=== PATIENT | male | born 1930 | race Caucasian/White ===

== ENCOUNTER 2016-10-24 16:28 | Emergency (ER) | payer MEDICARE, OTHER ==
[2016-10-24 13:13] LABS: BASOPHILS 0.4 %; BASOPHILS ABSOLUTE 0.02 10/3/uL (0.0-0.16); EOSINOPHILS 0.6 %; EOSINOPHILS ABSOLUTE 0.03 10/3/uL (0.0-0.53); ER CBC TAT 0 Hrs 07 Mins; HEMATOCRIT 29.5 % (40.0-51.0); HEMOGLOBIN 9.5 g/dL (13.6-17.8); IMMATURE GRANULOCYTES 0.6 %; IMMATURE GRANULOCYTES ABSOLUTE 0.03 10/3/uL (0.0-0.11); LYMPHOCYTES 11.9 %; LYMPHOCYTES ABSOLUTE 0.56 10/3/uL (0.67-4.30); MEAN CORPUSCULAR HEMOGLOB 30.7 pg (26.0-34.0); MEAN PLATELET VOLUME 8.8 fL (9.2-13.0); MONOCYTES 12.3 %; MONOCYTES ABSOLUTE 0.58 10/3/uL (0.21-1.20); NEUTROPHILS 74.2 %; NEUTROPHILS ABSOLUTE 3.49 10/3/uL (2.02-8.40); PLATELET COUNT 252 10/3/uL (150-400); RBC DISTRIBUTION WIDTH 13.8 % (12.0-16.0); RED CELL COUNT 3.09 10/6/uL (4.7-6.1); WHITE BLOOD CELLS 4.7 10/3/uL (4.5-10.5)
[2016-10-24 13:14] LABS: MANUAL DIFF NO %; MEAN CORPUS HGB CONC 32.2 g/dL (32.0-36.0); MEAN CORPUSCULAR VOLUME 95.5 fL (80-100)
[2016-10-24 13:23] LABS: INTERNATIONAL NORMAL RATI 2.5 UNITS (-); PARTIAL THROMBO TIME 35.3 SEC (22.5-37.2)
[2016-10-24 13:24] LABS: PROTIME (NOT ORD) 27.1 SEC (12.0-14.5)
[2016-10-24 13:31] LABS: BUN (BLOOD UREA NITROGEN) 40 MG/DL (6-23); CALCIUM, SERUM 9.4 MG/DL (8.5-10.4); CHEST PAIN PROFILE TAT 0 Hrs 25 Mins; CHLORIDE, SERUM 99 MMOL/L (96-112); CO2 (CARBON DIOXIDE) 31 MMOL/L (24-34); CREATININE 1.89 MG/DL (0.70-1.30); GFR AFRICAN AMERICAN 37 ML/MIN (>=60); GFR NON AFRICAN AMERICAN 32 ML/MIN (>=60); GLUCOSE, SERUM 113 MG/DL (60-99); POTASSIUM, SERUM 3.9 MMOL/L (3.5-5.3); SODIUM, SERUM 139 MMOL/L (135-148); TROPONIN I <0.02 NG/ML (<0.05)
[~2016-10-24 16:28] MED LIST: ADOXA100 MG PO; AMOXIL500C PO; ASAB PO; B12250T PO; BACTROINT TOP; BENEFIBER PO; BILBERRY500 MG OR; C25 PO; C5 PO; CALTRA600D PO; CARDCD300 PO; CENTRUM PO; CENTRUM SILVER PO; CO Q-10100 MG PO; CO Q-10200 MG PO; CO Q-1030 MG PO; COQ10100 MG OR; CORDARONE PO; COUMADIN3 MG PO; COUMADIN7.5 MG PO; CYANO1000T PO; DIOV80 PO; ESTER C PO; FISH OIL1200 MG PO; FLEXI JOIN1 PO; FLOMAX4 PO; GLUCCHONDR PO; GLUCPH PO; GLUMETZA500 MG PO; INTEGRA PLUS C1 EACH PO; L40 PO; L80 PO; LIPITOR10 PO; LIPITOR20 PO; LOP100 PO; LOP50 PO; LUPRON; LUPRON INJECTION IM; LUPRON2 WEEK IJ; METAMUCIL CAN7 OZ PO; METPAKSF PO; MIRALAXPKT PO; MULTIVIT/MIN PO; MULTIVITAMI1 PO; OMEGA PO; OMEGA XL PO; OSTEO BI-FLEX PO; OSTEO BI-FLEX1 EACH PO; PRAVAC PO; PRAVACHOL40 MG PO; PYR200 PO; SAW PALMETT2 PO; SAW PALMETTO PO; TURMERIC PO; UROXATRAL PO; VIT D3 PO; VITAMIN B PO; VITAMIN D31000 UNIT PO; ZOCOR10 PO; [UNRECOGNIZED DRUG - OTHER]; [UNRECOGNIZED DRUG - OTHER] PO; [UNRECOGNIZED DRUG - OTHER] PO; [UNRECOGNIZED DRUG - OTHER] PO; [UNRECOGNIZED DRUG - OTHER] PO
[2016-10-24 16:51] LABS: INFLUENZA A SCREEN NEGATIVE (NEGATIVE); INFLUENZA B SCREEN NEGATIVE (NEGATIVE)
== END 2016-10-24 23:21 | disposition home or self-care (01) ==
LOC: ER 16:28
PROVIDERS: Emergency Medicine; Nurse Practitioner
DX: J40 Bronchitis, not specified as acute or chronic (principal); J11.1 Influenza due to unidentified influenza virus with other respiratory manifestations; I48.91 Unspecified atrial fibrillation; Z95.1 Presence of aortocoronary bypass graft; I50.9 Heart failure, unspecified; I12.9 Hypertensive chronic kidney disease with stage 1 through stage 4 chronic kidney disease, or unspecified chronic kidney disease; N18.9 Chronic kidney disease, unspecified; E11.9 Type 2 diabetes mellitus without complications; Z79.82 Long term (current) use of aspirin
CPT/HCPCS: 71020; 74176; 80048; 83735; 83880; 84484; 85025; 85610; 85730; 87804; 93005; 94640; 99285

== ENCOUNTER 2017-02-04 09:01 | Inpatient (IN) | payer MEDICARE, OTHER ==
--- NOTE | ~2017-02-04 | HP ---
History And Physical [id number] [place]. [address] NAME: LEOBARDO GARCIA : 32 STATUS : ADM IN PAT#: [id number] AGE: 86 ADM/REG DATE : 02/04/17 MR#: [id number] REPORT SERV DATE: 02/04/17 DICTATED BY: CHAI BOLIVAR DATE: 02/04/17 REPORT STATUS : Draft TRANSCRIBED BY: MODL DATE: 02/04/17 DATE OF ADMISSION: 02/04/2017 REASON FOR ADMISSION: Nausea, vomiting, diarrhea, and generalized weakness. STOCKFEED MILLER: Shun Patterson M.D. ONCOLOGIST: Daniel Ugalde M.D. CHIEF COMPLAINT: "I started feeling very weak today and have a lot of diarrhea." HISTORY OF PRESENT ILLNESS: An 86-year-old white male with a history of stage IV prostate cancer, on Lupron and Zytiga, followed by Dr. Ugalde. Last seen approximately three weeks ago along with CKD stage 3, type 2 diabetes, and morbid obesity, had been in his usual state of health up until a few days ago where he started having some nausea, vomiting, and last time multiple episodes of diarrhea. He was able to keep some water down, but otherwise very decreased p.o. intake. He says he feels extremely weak. He has his chronic cough. His daughter said that she felt like his temperature was high, but did not measure his temperature, went ahead and gave him some Tylenol. The patient states that he was feeling so weak that he fell to the floor on his way to the bathroom, but denied any syncope or loss of consciousness. He currently complains of some right-sided chest wall pain, but denies it is being from the fall. 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 The patient was triaged by Dr. Bravo, who gave him some IV fluids, Levaquin, and Tylenol. The patient states he feels minimally better. Hospice was asked to admit for further evaluation. REVIEW OF SYSTEMS: As per HPI. Otherwise, 10-point system were reviewed and are negative. PAST MEDICAL HISTORY: Significant for coronary artery disease, status post CABG; AFib, status post maze; type 2 diabetes; prostate cancer, on Lupron followed by Dr. Camarena and Dr. 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 PAST SURGICAL HISTORY: CABG 2011, maze, late life circumcision for phimosis with dorsal slit procedure, right leg abscesses I and D allergies no known drug allergies. SOCIAL HISTORY: He has three children, who live in the area. Ambulates with a cane. Served in the [employer] in the [place] [employer]. He was exposed to Agent Labette, which was felt like to have caused his diabetes and neuropathy. He used to work at [employer]. FAMILY HISTORY: Positive for heart disease, stroke, and diabetes. History And Physical [address] [address] NAME: LEOBARDO GARCIA : 32 STATUS : ADM IN [facility]#: [id number] AGE: 86 ADM/REG DATE : 02/04/17 MR#: [id number] REPORT SERV DATE: 02/04/17 DICTATED BY: CHAI BOLIVAR DATE: 02/04/17 REPORT STATUS : Draft TRANSCRIBED BY: GRACIELA DATE: 02/04/17 MEDICATIONS: Zytiga 1000 mg before breakfast, Tylenol, ProAir p.r.n., aspirin 81 mg once a day, Lipitor 10 mg at bedtime, vitamin D3 2000 units every morning, coenzyme Q, vitamin B12, exenatide 2 mg subcu every seven days, finasteride 5 mg every morning, Lasix 40 mg every day, Osteo Bi-Flex, iron supplements, multivitamin, omega-3 fatty acid, prednisone 5 mg twice a day for long-term therapy, saw palmetto, Flomax 0.4 mg daily, turmeric, Lupron injection, probiotic, Benefiber, and Coumadin. PHYSICAL EXAMINATION: GENERAL: He is in no acute distress. Oriented x3. Chronically ill appearing, and very debilitated. VITAL SIGNS: Show blood pressure 99/37, temperature 37.1, pulse is 95, and sat 94% on room air. HEENT: Normocephalic and atraumatic head. Extraocular muscles intact. Oropharynx is clear. NECK: Supple. No JVD. CARDIAC: Regular rate and rhythm. No murmurs, rubs, or gallops. PULMONARY: Clear to auscultation bilaterally. ABDOMEN: Soft. Positive bowel sounds. There are old healed scars. There is some tenderness to palpation in the right lower quadrant. NEUROLOGIC: No focal deficits. SKIN: Warm and dry. PSYCHIATRIC: The patient is cooperative. Mood is appropriate. LABORATORY DATA: Shows a white blood cell count of 8.4, hemoglobin 11.2, MCV of 101.2, and platelet of 231. INR 2.4. Procalcitonin 2.68. Creatinine 2.51 and BUN 54. Alkaline phosphatase of 189, troponin 0.06, lactate 3.1. ABG shows pH of 7.48, pCO2 of 39, and pO2 of 85. Chest x-ray, no acute process. CT scan of the chest extensive blastic metastatic disease with bony thorax, new since 2016. CT of the abdomen is new extensive blastic metastases in to the abdomen and pelvis since 2017. However, slight interval improvement in largest lymph nodes, retroperitoneal, and central compared to 10/24. IMPRESSION: 1. Nausea, vomiting, and diarrhea, likely secondary to gastroenteritis. 2. Progression of stage IV prostate cancer. 3. Acute kidney injury on chronic kidney disease, stage 3. 4. Chronic cough. 5. Pleuritic chest pain likely due to blastic lesions. 6. Paroxysmal atrial fibrillation, on chronic Coumadin. 7. Type 2 diabetes. 8. Generalized weakness. PLAN: The plan is to do IV fluids. I will obtain stool studies including C difficile, ova History And Physical [address] [address] NAME: LEOBARDO GARCIA : 32 STATUS : ADM IN PAT#: [id number] AGE: 86 ADM/REG DATE : 02/04/17 MR#: [id number] REPORT SERV DATE: 02/04/17 DICTATED BY: CHAI BOLIVAR DATE: 02/04/17 REPORT STATUS : Draft TRANSCRIBED BY: MODL DATE: 02/04/17 and parasites. Pain control. The patient is a DNR. Has an overall poor prognosis. Would recommend potentially hospice in the near future. However, awaiting Dr. Ugalde's assessment as there is concern for progression of disease on the patient's current therapy. ESQUIVEL/MODL Chai Bolivar MD / [id number] CC: MD Adan Pinon M.D. Prashant Hamm M.D.
--- NOTE | ~2017-02-04 | CN ---
Consultation Report [facility] [address] [place]. [address] NAME: LEOBARDO GARCIA : 32 STATUS : ADM IN PAT#: [id number] AGE: 86 ADM/REG DATE : 02/04/17 MR#: [id number] REPORT SERV DATE: 02/09/17 DICTATED BY: CHINO BOCANEGRA DATE: 02/09/17 REPORT STATUS : Draft TRANSCRIBED BY: MODL DATE: 02/09/17 GI CONSULTATION DATE OF CONSULTATION: 02/09/2017 REASON FOR CONSULTATION: Evaluation and management of intractable diarrhea. HISTORY OF PRESENT ILLNESS: Mr. Garcia is an 86-year-old male patient, who has been seen by Dr. Rhodes in the outpatient setting, who presents to [facility] with a chief complaint of nausea, vomiting, diarrhea as well as generalized weakness. He states that his symptoms began this past Sunday on 02/03/2017 when he spent all day having what he states is multiple diarrheal stools. His diarrhea led to weakness and overall fatigue. He has a notable history of stage IV prostate cancer, being treated with Lupron and Zytiga. He is followed by Dr. Ugalde in the outpatient setting. He tells me that the day prior to his symptom onset, he had a normal formed bowel movement. He initially states that he did not have any abdominal discomfort, but with his abdomen he is now experiencing cramping. He states that anything that he eats induces diarrhea. Overall, he feels poorly, he is weak, and fatigued. He has been placed on multiple antidiarrheals including Questran, dicyclomine, paregoric. He is on low-dose prednisone. He is on as needed Lomotil and Imodium. CT scan done on admission, that is on 02/04/2017 was without contrast, who had one of the chest, abdomen, and pelvis. Chest showed extensive blastic metastatic disease to the bony thorax. Abdomen and pelvis shows new extensive blastic metastatic disease to the abdomen and pelvis since 10/24/2016 CT scan. Initially, the question if this could be medication related, but however it feels at this point in time, they do not feel that is the primary calls. The patient sitting up in bed. He is frail and weak in appearance. He states that he has had six loose bowel movements today. He describes them as yellow to greenish in color. He denies any black tarry stools or bright red blood per rectum. Generally, he does not feel well, complains of abdominal cramping with some mild nausea. No heartburn or indigestion. Stool studies for C diff have returned negative. Cryptosporidium was negative as well as Giardia was negative. Cultures and sensitivities were not obtained neither white blood cell measurement. He had a procalcitonin that was elevated at 3.54 on admission. I have discussed with the patient as well as his two daughters who are present at the bedside. We will complete his stool studies with culture sensitivities, WBCs. We will place him on a trial of Pepto-Bismol as well as some scheduled Imodium. If infectious organism comes back positive, would likely add Levaquin and Flagyl for a full course of treatment. No plans at this time for endoscopy as he has a history of atrial fibrillation, on Coumadin with an INR presently of 6.0. Family is agreeable with this. It did not want endoscopy at this point in time unless last resort. PAST MEDICAL HISTORY: Positive for metastatic prostate cancer, coronary artery disease, status post CABG, atrial fibrillation, status post Maze, on Coumadin, type 2 diabetes, diabetic neuropathy, hypertension, reflux, colon polyps, BPH, cellulitis, cyst in the pancreatic head, cholelithiasis, stroke, chronic kidney disease stage III. Consultation Report [address] [place]. [address] NAME: LEOBARDO GARCIA : 32 STATUS : ADM IN [facility]#: [id number] AGE: 86 ADM/REG DATE : 02/04/17 MR#: [id number] REPORT SERV DATE: 02/09/17 DICTATED BY: CHINO BOCANEGRA DATE: 02/09/17 REPORT STATUS : Draft TRANSCRIBED BY: MODGwendolyn DATE: 02/09/17 PAST SURGICAL HISTORY: CABG, Maze, phimosis with dorsal slit procedure, right leg abscess with I and D. SOCIAL HISTORY: He lives independently. Denies alcohol, tobacco, or illicits. FAMILY HISTORY: Noncontributory from a GI standpoint. ALLERGIES: LISTED TO NOTHING. HOME MEDICATIONS: Zytiga, Tylenol, ProAir, aspirin, Lipitor, vitamin D, Co Q10, vitamin B12, Bydureon, Proscar, Lasix, Osteo Bi-Flex, Integra, multivitamin, fish oil, prednisone, saw palmetto, Flomax, turmeric, Lupron, probiotic, Benefiber, Coumadin. REVIEW OF SYSTEMS: A 10-point review of systems has been obtained with pertinent positives being addressed in the history of present illness. PERTINENT LABORATORY DATA: Sodium 144, potassium 3.6, BUN is 29, creatinine is 1.3. White blood cell count is 6, hemoglobin 10.4, hematocrit 31.1, platelet count of 220. INR of 6. PHYSICAL EXAMINATION: VITAL SIGNS: Temperature is 97.8, pulse 77, respirations of 18, blood pressure 106/53. NEURO: Reveals an alert, but ill-appearing, weak, and frail male, sitting up in the bedside chair. GENERAL: He is cooperative. He is in mild distress secondary to overall feeling poorly. He is awake, alert, oriented x3. HEAD, EARS, EYES, NOSE, AND THROAT: Anicteric. Pupils are equal, round, reactive to light and accommodation. Normocephalic, atraumatic. NECK: No JVD. No palpable nodes. LUNGS: Coarse with shallow respiratory effort, central congestion noted. CARDIOVASCULAR SYSTEM: Regular rate and rhythm. ABDOMEN: Soft with very minimal tenderness to palpation. He has no rebound or guarding elicited on exam. No organomegaly appreciated. EXTREMITIES: Slight edema. SKIN: Warm, dry, and intact. ASSESSMENT/PLAN: 1. Intractable diarrhea, question if this could be med related, question if it could be infectious in nature. Not a colonoscopy candidate at this time as well family prefers no endoscopy. 2. Prostate cancer with metastatic disease. 3. Atrial fibrillation, on Coumadin. 4. Anemia. 5. Debility. Consultation Report [id number] [facility] [address]. [address] NAME: LEOBARDO GARCIA : 32 STATUS : ADM IN [facility]#: [id number] AGE: 86 ADM/REG DATE : 02/04/17 MR#: [id number] REPORT SERV DATE: 02/09/17 DICTATED BY: CHINO BOCANEGRA DATE: 02/09/17 REPORT STATUS : Draft TRANSCRIBED BY: MODL DATE: 02/09/17 PLAN: 1. Stool culture with sensitivities as well as check for white blood cells. 2. Pepto-Bismol trial, two tablets t.i.d. 3. Question if he would benefit from a course of Flagyl 500 mg t.i.d. We will follow. GINA/GRACIELA [place] JUANCARL[place] Ford / [id number] CC: Prashant Siu M.D.
--- NOTE | ~2017-02-04 | DS ---
Discharge Summary [address] [place]. [address] NAME: LEOBARDO GARCIA : 32 STATUS : DIS IN PAT#: [id number] AGE: 86 ADM/REG DATE : 02/04/17 MR#: [id number] REPORT SERV DATE: 02/13/17 DICTATED BY: HAZEL TORRES DATE: 02/12/17 REPORT STATUS : Draft TRANSCRIBED BY: MODL DATE: 02/12/17 ADMISSION DATE: 02/04/2017 DISCHARGE DATE: 02/12/2017 I am dictating for myself, Hazel Torres, along with Dr. Weber. DISCHARGE DIAGNOSIS: 1. Persistent diarrhea due to chemotherapy, resolved. 2. Atrial fibrillation, stable. 3. Debility. 4. Prostate cancer, followed by Oncology. 5. Chronic kidney disease stage 3, stable. 6. Diabetes mellitus type 2, stable. IMAGIN. Chest x-ray, 02/04/2017, impression: No acute cardiopulmonary disease. Low lung volumes. Status post CABG. 2. CT abdomen and CT of the chest, abdomen, and pelvis, 02/04/2017, impression: No acute cardiopulmonary disease. Extensive blastic metastatic disease to the bony thorax since September 2015. Slight interval improvement and largest lymph node in the retroperitoneal and central October 24. New extensive blastic metastatic disease to the abdomen and pelvis since 10/24/2016. 3. Echocardiogram 02/06/2017, impression: Normal LV size and systolic function. Estimated ejection fraction 50-55%. Mild LVH. Borderline normal RV size and systolic function. Aortic valve sclerosis without stenosis. Mild pulmonary hypertension with RVSP of 42 mmHg. LABORATORY DATA: On 02/12/2017, WBCs 8.0, hemoglobin 9.8, hematocrit 28.7, platelet count is 228. PT is 42.0, INR 4.4. Sodium is 138, potassium is 4.3, chloride 110, CO2 is 21, BUN is 27, creatinine is 1.15, glucose is 96, calcium is 8.8, magnesium is 2.1, phosphorus is 2.5, direct bilirubin is 2.3, BNP is 587.9. CONSULTATION: 1. Oncology, Dr. Ugalde on 02/05/2017. 2. GI, Ancelmo Ford on 02/09/2017. COURSE AT HOSPITAL STAY: Please refer to history and physical dictated by Dr. Bolivar on 02/04/2017 as well as consultation notes by Dr. Ugalde and Ancelmo Ford NP. This patient is an 86-year-old male who presents with a history of stage IV prostate cancer, on Lupron and Zytiga. The patient presented with complaints of nausea, vomiting, diarrhea, and generalized weakness. The patient stated the diarrhea had been ongoing for several days. He was having increased watery stool. The patient was admitted to the hospital. Imaging was obtained which is noted above. Oncology and GI were consulted. 1. Persistent diarrhea. As noted above, the patient had complaints of increasing watery stools. He stated he was having abdominal cramping. Stool studies were obtained, Discharge Summary [address] [address] NAME: LEOBARDO GARCIA : 32 STATUS : DIS IN PAT#: [id number] AGE: 86 ADM/REG DATE : 02/04/17 MR#: [id number] REPORT SERV DATE: 02/13/17 DICTATED BY: HAZEL TORRES DATE: 02/12/17 REPORT STATUS : Draft TRANSCRIBED BY: GRACIELA DATE: 02/12/17 which were negative. The patient's Zytiga was held which is felt to be the cause of his symptoms. GI was consulted, and the patient was evaluated. At the time of discharge, the patient is on Questran, Imodium, and Bentyl which are controlling patient's symptoms. At this time, the patient reports formed stool. He will continue to be followed up outpatient. 2. Atrial fibrillation. The patient's Coumadin has been held during his hospital stay. At this time, PT is 42.0, INR is 4.4. We will continue to have the patient follow at outpatient. Restart Coumadin when INR is 2.0 to 3.0. The patient is aware that Coumadin has been held due to elevated INR. 3. Debility. The patient had complaints of weakness upon admission. PT evaluation completed, recommended patient to do inpatient rehab. The patient will be discharged to [facility]. The patient is in agreement with the facility. 4. Prostate cancer. The patient is followed by Dr. Ugalde, [facility]. It was discussed with Oncology regarding the patient's symptoms and agreed upon the Zytiga withheld at this time. The patient will follow up upon completion of rehab and discuss further treatment plans. 5. Chronic kidney disease stage 3. The patient has been monitored at this time. Renal function is at baseline, BUN is 27, creatinine is 1.15. The patient has remained stable. 6. Diabetes mellitus type 2. The patient was placed on sliding scale insulin and monitored throughout his stay. At this time, blood sugar is 96 and it has remained stable. DISCHARGE MEDICATIONS: 1. Aspirin 81 mg one p.o. daily. 2. Lipitor 10 mg one p.o. daily. 3. Questran 4 mg p.o. twice daily. 4. Vitamin B12 of 1000 mcg tablet 500 mcg every morning. 5. Vitamin D3 of 1000 units, 2000 units p.o. every morning. 6. CoQ10 of 200 mg, 400 mg p.o. every morning. 7. Bentyl 10 mg one p.o. before meals. 8. Iron 1 tablet p.o. every morning. 9. Proscar 5 mg one p.o. every morning. 10.Lasix 40 mg one p.o. every day. 11.Imodium 2 mg one p.o. twice daily. 12.Multivitamin p.o. daily. 13.Hansen-3 fatty acid one p.o. daily. 14.Florastor 1 cap p.o. daily. 15.Flomax 0.4 mg one p.o. daily. 16.Coumadin. INR to be kept between 2.3-3.0. Coumadin 5 mg one p.o. Sunday, Sunday, Sunday, Sunday, , Sunday. 17.Coumadin 7.5 mg one p.o. on Sunday and INR to be checked twice weekly. 18.Prednisone 5 mg p.o. breakfast and supper. 19.Tylenol 325 mg, 650 mg p.r.n. 20.Lomotil 2.5 mg one p.o. every 6 hours p.r.n. 21.Colace 100 mg one p.o. daily. 22.Zofran 4 mg one p.o. daily. Discharge Summary [place] [address] [place] [address] [address] NAME: GARCIALEOBARDO SARAN : 32 STATUS : DIS IN PAT#: [id number] AGE: 86 ADM/REG DATE : 02/04/17 MR#: [id number] REPORT SERV DATE: 02/13/17 DICTATED BY: HAZEL TORRES DATE: 02/12/17 REPORT STATUS : Draft TRANSCRIBED BY: GRACIELA DATE: 02/12/17 23.ProAir inhaler two puffs inhaled p.r.n. for shortness of breath. 24.Saw palmetto 900 mg one p.o. every morning. 25.Turmeric 2000 mg one p.o. at bedtime. 26.Lupron per Dr. Camarena. 27.Probiotic daily. This discharge took greater than 30 minutes. DICTATED BY: Hazel Torres NP [facility]/GRACIELA Hazel Torres NP / [id number] CC: Prashant Siu M.D.
[2017-02-04] MEDS ORDERED: ZYTIGA250 MG PO (09:45)
[2017-02-04] MEDS ORDERED: P5 PO (09:45)
[2017-02-04] MEDS ORDERED: BYDUREON2 MG SQ (09:46)
[2017-02-04] MEDS ORDERED: INTEGRA PLUS C1 EACH PO (09:46)
[2017-02-04] MEDS ORDERED: PROSCAR5 PO (09:46)
[2017-02-04] MEDS ORDERED: PROAIR HFA INH (09:47)
[2017-02-04] MEDS ORDERED: L40 PO (09:48)
[2017-02-04] MEDS ORDERED: COUMADIN7.5 MG PO (09:50)
[2017-02-04] MEDS ORDERED: C5 PO (09:50)
[2017-02-04] MEDS ORDERED: MULTIVIT/MIN PO (09:51)
[2017-02-04] MEDS ORDERED: LIPITOR10 PO (09:52)
[2017-02-04] MEDS ORDERED: SAW PALMETT2 PO (09:53)
[2017-02-04] MEDS ORDERED: FLOMAX4 PO (09:53)
[2017-02-04] MEDS ORDERED: OSTEO BI-FLEX1 EACH PO (09:53)
[2017-02-04] MEDS ORDERED: VITAMIN B-121000 MC1 SL (09:53)
[2017-02-04] MEDS ORDERED: ASAB PO (09:54)
[2017-02-04] MEDS ORDERED: CO Q-10200 MG PO (09:54)
[2017-02-04] MEDS ORDERED: FISH OIL1200 MG PO (09:54)
[2017-02-04] MEDS ORDERED: VITAMIN D31000 UNIT PO (09:54)
[2017-02-04] MEDS ORDERED: TURMERIC PO (09:55)
[2017-02-04] MEDS ORDERED: PROBIOTIC PO (09:57)
[2017-02-04] MEDS ORDERED: LUPRON DEPOT IM (09:57)
[2017-02-04] MEDS ORDERED: BENEFIBER PO (09:57)
[2017-02-04] MEDS ORDERED: T PO (09:58)
[2017-02-04 10:51] LABS: BASOPHILS 0.1 %; BASOPHILS ABSOLUTE 0.01 10/3/uL (0.0-0.16); EOSINOPHILS 1.7 %; EOSINOPHILS ABSOLUTE 0.14 10/3/uL (0.0-0.53); HEMOGLOBIN 11.2 g/dL (13.6-17.8); IMMATURE GRANULOCYTES 0.4 %; IMMATURE GRANULOCYTES ABSOLUTE 0.03 10/3/uL (0.0-0.11); LYMPHOCYTES 4.5 %; LYMPHOCYTES ABSOLUTE 0.38 10/3/uL (0.67-4.30); MEAN CORPUS HGB CONC 32.1 g/dL (32.0-36.0); MEAN CORPUSCULAR HEMOGLOB 32.5 pg (26.0-34.0); MEAN PLATELET VOLUME 9.9 fL (9.2-13.0); MONOCYTES 6.6 %; MONOCYTES ABSOLUTE 0.56 10/3/uL (0.21-1.20); NEUTROPHILS 86.7 %; NEUTROPHILS ABSOLUTE 7.31 10/3/uL (2.02-8.40); PLATELET COUNT 231 10/3/uL (150-400); RED CELL COUNT 3.45 10/6/uL (4.7-6.1)
[2017-02-04 10:52] LABS: ER CBC TAT 0 Hrs 08 Mins; HEMATOCRIT 34.9 % (40.0-51.0); MANUAL DIFF NO %; MEAN CORPUSCULAR VOLUME 101.2 fL (80-100); RBC DISTRIBUTION WIDTH 16.7 % (12.0-16.0); WHITE BLOOD CELLS 8.4 10/3/uL (4.5-10.5)
[2017-02-04 11:05] LABS: A/G RATIO 0.9 (0.7-1.9); ALKALINE PHOSPHATASE 189 U/L (45-117); BUN (BLOOD UREA NITROGEN) 54 MG/DL (6-23); CALCIUM, SERUM 9.1 MG/DL (8.5-10.4); CHLORIDE, SERUM 97 MMOL/L (96-112); CO2 (CARBON DIOXIDE) 31 MMOL/L (24-34); CREATININE 2.51 MG/DL (0.70-1.30); GFR AFRICAN AMERICAN 26 ML/MIN (>=60); GFR NON AFRICAN AMERICAN 23 ML/MIN (>=60); GLOBULIN 3.5 G/DL (2.5-4.1); GLUCOSE, SERUM 153 MG/DL (60-99); POTASSIUM, SERUM 3.6 MMOL/L (3.5-5.3); SGOT(AST) 31 U/L (5-40); SGPT(ALT) 43 U/L (5-65); SODIUM, SERUM 137 MMOL/L (135-148); TOTAL BILIRUBIN 0.7 MG/DL (0-1.2); TOTAL PROTEIN 6.5 G/DL (6.0-8.5)
[2017-02-04 11:06] LABS: LACTATE 3.1 MMOL/L (0.3-2.4); TROPONIN I 0.06 NG/ML (<0.05)
[2017-02-04 11:25] LABS: PROCALCITONIN 2.68 ng/mL (<0.5)
[2017-02-04 11:27] LABS: INTERNATIONAL NORMAL RATI 2.4 UNITS (-); PARTIAL THROMBO TIME 27.9 SEC (22.5-37.2)
[2017-02-04 12:36] LABS: ALLENS TEST Pos; BE (BASE EXCESS) 4.1 MEQ/L (0 +/- 2.5); CARBOXYHEMOGLOBIN 0.9 % (0-3); DEVICE NC; HCO3 (ACTUAL BICARBONATE) 27.8 MEQ/L (23-27); HEMOBLOGIN CONTENT 10.4 G/DL (14-18); INSTRUMENT SERIAL # 8087; METHEMOGLOBIN 0.5 % (0-3); OPERATOR ID 35859; PCO2 (CO2 TENSION) 39 MMHG (35-45); PO2 (O2 TENSION) 85 MMHG (79-93); SAMPLE Arterial; pH 7.48 (7.37-7.43)
[2017-02-04 18:50] LABS: A/G RATIO 0.8 (0.7-1.9); ALBUMIN 2.6 G/DL (3.5-5.0); BUN (BLOOD UREA NITROGEN) 54 MG/DL (6-23); CALCIUM, SERUM 8.4 MG/DL (8.5-10.4); CHLORIDE, SERUM 102 MMOL/L (96-112); CO2 (CARBON DIOXIDE) 31 MMOL/L (24-34); CREATININE 2.21 MG/DL (0.70-1.30); GFR AFRICAN AMERICAN 31 ML/MIN (>=60); GFR NON AFRICAN AMERICAN 26 ML/MIN (>=60); GLOBULIN 3.2 G/DL (2.5-4.1); POTASSIUM, SERUM 3.6 MMOL/L (3.5-5.3); SGOT(AST) 30 U/L (5-40); SGPT(ALT) 41 U/L (5-65); SODIUM, SERUM 139 MMOL/L (135-148); TOTAL BILIRUBIN 0.6 MG/DL (0-1.2); TOTAL PROTEIN 5.8 G/DL (6.0-8.5)
[2017-02-04 18:52] LABS: ALKALINE PHOSPHATASE 168 U/L (45-117); GLUCOSE, SERUM 113 MG/DL (60-99)
[2017-02-04 19:29] LABS: PROCALCITONIN 3.54 ng/mL (<0.5)
[2017-02-05 08:29] LABS: BASOPHILS 0 %; EOSINOPHILS 2.2 %; EOSINOPHILS ABSOLUTE 0.12 10/3/uL (0.0-0.53); HEMOGLOBIN 9.6 g/dL (13.6-17.8); IMMATURE GRANULOCYTES 0.2 %; IMMATURE GRANULOCYTES ABSOLUTE 0.01 10/3/uL (0.0-0.11); LYMPHOCYTES 17.1 %; LYMPHOCYTES ABSOLUTE 0.94 10/3/uL (0.67-4.30); MEAN CORPUS HGB CONC 32.4 g/dL (32.0-36.0); MEAN CORPUSCULAR HEMOGLOB 32.8 pg (26.0-34.0); MEAN PLATELET VOLUME 9.5 fL (9.2-13.0); MONOCYTES 7.8 %; MONOCYTES ABSOLUTE 0.43 10/3/uL (0.21-1.20); NEUTROPHILS 72.7 %; PLATELET COUNT 195 10/3/uL (150-400); RBC DISTRIBUTION WIDTH 17.1 % (12.0-16.0); RED CELL COUNT 2.93 10/6/uL (4.7-6.1); WHITE BLOOD CELLS 5.5 10/3/uL (4.5-10.5)
[2017-02-05 08:31] LABS: HEMATOCRIT 29.6 % (40.0-51.0); MANUAL DIFF NO %
[2017-02-05 08:32] LABS: INTERNATIONAL NORMAL RATI 3.5 UNITS (-)
[2017-02-05 08:37] LABS: PROTIME (NOT ORD) 34.8 SEC (12.0-14.5)
[2017-02-05 08:38] LABS: ALBUMIN 2.6 G/DL (3.5-5.0); CALCIUM, SERUM 8.9 MG/DL (8.5-10.4); CHLORIDE, SERUM 104 MMOL/L (96-112); CO2 (CARBON DIOXIDE) 29 MMOL/L (24-34); CREATININE 1.84 MG/DL (0.70-1.30); GFR AFRICAN AMERICAN 38 ML/MIN (>=60); GFR NON AFRICAN AMERICAN 33 ML/MIN (>=60); GLUCOSE, SERUM 106 MG/DL (60-99); PHOSPHORUS, SERUM 3.2 MG/DL (2.5-4.5); POTASSIUM, SERUM 3.5 MMOL/L (3.5-5.3); SODIUM, SERUM 141 MMOL/L (135-148)
[2017-02-05 08:40] LABS: BUN (BLOOD UREA NITROGEN) 48 MG/DL (6-23)
[2017-02-05 16:57] LABS: ASCORBIC ACID (UR NOT ORDER) 40 (NEG); BILIRUBIN, URINE NEGATIVE (NEG); KETONE, URINE NEGATIVE (NEG); LEUKOCYTE ESTERASE(NOT OR NEG (NEG); WBC (NOT ORDERED) (RFLEX) < 1 (0-5)
[2017-02-06 03:36] LABS: HEMATOCRIT 30.5 % (40.0-51.0); MEAN CORPUS HGB CONC 32.8 g/dL (32.0-36.0); MEAN CORPUSCULAR HEMOGLOB 33.4 pg (26.0-34.0); MEAN PLATELET VOLUME 9.6 fL (9.2-13.0); PLATELET COUNT 199 10/3/uL (150-400); RBC DISTRIBUTION WIDTH 16.7 % (12.0-16.0); RED CELL COUNT 2.99 10/6/uL (4.7-6.1); WHITE BLOOD CELLS 4.8 10/3/uL (4.5-10.5)
[2017-02-06 03:38] LABS: MANUAL DIFF YES %
[2017-02-06 03:41] LABS: INTERNATIONAL NORMAL RATI 4.6 UNITS (-)
[2017-02-06 03:42] LABS: PROTIME (NOT ORD) 42.8 SEC (12.0-14.5)
[2017-02-06 03:47] LABS: ALBUMIN 2.5 G/DL (3.5-5.0); CALCIUM, SERUM 8.8 MG/DL (8.5-10.4); CHLORIDE, SERUM 106 MMOL/L (96-112); CO2 (CARBON DIOXIDE) 29 MMOL/L (24-34); CREATININE 1.68 MG/DL (0.70-1.30); GFR AFRICAN AMERICAN 43 ML/MIN (>=60); GFR NON AFRICAN AMERICAN 37 ML/MIN (>=60); GLUCOSE, SERUM 115 MG/DL (60-99); PHOSPHORUS, SERUM 2.4 MG/DL (2.5-4.5); POTASSIUM, SERUM 3.6 MMOL/L (3.5-5.3); SODIUM, SERUM 142 MMOL/L (135-148)
[2017-02-06 03:48] LABS: BUN (BLOOD UREA NITROGEN) 42 MG/DL (6-23)
[2017-02-06 04:04] LABS: BAND NEUTROPHILS 16 %; BASOPHILS 1 %; BASOPHILS ABSOLUTE (CALC) 0.05 10/3/uL (0.0-0.16); EOSINOPHILS 6 %; EOSINOPHILS ABSOLUTE (CALC) 0.29 10/3/uL (0.0-0.53); LYMPHOCYTES 16 %; LYMPHOCYTES ABSOLUTE (CALC) 0.77 10/3/uL (0.67-4.30); MACROCYTES 1+ (5-10/OIF) (0-5/OIF); MONOCYTES 8 %; MONOCYTES ABSOLUTE (CALC) 0.38 10/3/uL (0.21-1.20); NEUTROPHILS ABSOLUTE (CALC) 3.31 10/3/uL (2.02-8.40); PLATELET ESTIMATE ADQ (ADEQUATE); SEGMENTED NEUTROPHIL (0) 53 %; TOTAL NUCLEATED CELLS 100
[2017-02-07 05:45] LABS: HEMATOCRIT 31.3 % (40.0-51.0); HEMOGLOBIN 10.3 g/dL (13.6-17.8); MANUAL DIFF YES %; MEAN CORPUS HGB CONC 32.9 g/dL (32.0-36.0); MEAN CORPUSCULAR HEMOGLOB 33.2 pg (26.0-34.0); MEAN PLATELET VOLUME 9.8 fL (9.2-13.0); PLATELET COUNT 220 10/3/uL (150-400); RBC DISTRIBUTION WIDTH 16.9 % (12.0-16.0); WHITE BLOOD CELLS 5.1 10/3/uL (4.5-10.5)
[2017-02-07 05:48] LABS: INTERNATIONAL NORMAL RATI 5.3 UNITS (-); PROTIME (NOT ORD) 48.5 SEC (12.0-14.5)
[2017-02-07 05:55] LABS: ALBUMIN 2.5 G/DL (3.5-5.0); CALCIUM, SERUM 9.1 MG/DL (8.5-10.4); CHLORIDE, SERUM 105 MMOL/L (96-112); CO2 (CARBON DIOXIDE) 28 MMOL/L (24-34); CREATININE 1.71 MG/DL (0.70-1.30); GFR AFRICAN AMERICAN 42 ML/MIN (>=60); GFR NON AFRICAN AMERICAN 36 ML/MIN (>=60); GLUCOSE, SERUM 107 MG/DL (60-99); PHOSPHORUS, SERUM 2.7 MG/DL (2.5-4.5); POTASSIUM, SERUM 3.2 MMOL/L (3.5-5.3); SODIUM, SERUM 142 MMOL/L (135-148)
[2017-02-07 05:57] LABS: BUN (BLOOD UREA NITROGEN) 34 MG/DL (6-23)
[2017-02-07 06:21] LABS: BAND NEUTROPHILS 12 %; EOSINOPHILS 3 %; EOSINOPHILS ABSOLUTE (CALC) 0.15 10/3/uL (0.0-0.53); IMMATURE GRANS ABSOLUTE (CALC) 0.05 10/3/uL (0.0-0.11); LYMPHOCYTES 13 %; LYMPHOCYTES ABSOLUTE (CALC) 0.66 10/3/uL (0.67-4.30); MACROCYTES 1+ (5-10/OIF) (0-5/OIF); METAMYELOCYTES 1 %; MONOCYTES 6 %; MONOCYTES ABSOLUTE (CALC) 0.31 10/3/uL (0.21-1.20); NEUTROPHILS ABSOLUTE (CALC) 3.93 10/3/uL (2.02-8.40); PLATELET ESTIMATE ADQ (ADEQUATE); SEGMENTED NEUTROPHIL (0) 65 %; TOTAL NUCLEATED CELLS 100
[2017-02-08 04:37] LABS: BASOPHILS 0.4 %; BASOPHILS ABSOLUTE 0.02 10/3/uL (0.0-0.16); EOSINOPHILS 2.9 %; EOSINOPHILS ABSOLUTE 0.16 10/3/uL (0.0-0.53); HEMATOCRIT 29.5 % (40.0-51.0); HEMOGLOBIN 9.8 g/dL (13.6-17.8); IMMATURE GRANULOCYTES 1.3 %; IMMATURE GRANULOCYTES ABSOLUTE 0.07 10/3/uL (0.0-0.11); LYMPHOCYTES 20.6 %; LYMPHOCYTES ABSOLUTE 1.12 10/3/uL (0.67-4.30); MEAN CORPUS HGB CONC 33.2 g/dL (32.0-36.0); MEAN CORPUSCULAR HEMOGLOB 33.6 pg (26.0-34.0); MEAN PLATELET VOLUME 9.6 fL (9.2-13.0); MONOCYTES 12.8 %; NEUTROPHILS ABSOLUTE 3.38 10/3/uL (2.02-8.40); PLATELET COUNT 206 10/3/uL (150-400); RBC DISTRIBUTION WIDTH 16.8 % (12.0-16.0); RED CELL COUNT 2.92 10/6/uL (4.7-6.1); WHITE BLOOD CELLS 5.5 10/3/uL (4.5-10.5)
[2017-02-08 04:42] LABS: MANUAL DIFF NO %
[2017-02-08 04:47] LABS: PROTIME (NOT ORD) 55.7 SEC (12.0-14.5)
[2017-02-08 04:48] LABS: INTERNATIONAL NORMAL RATI 6.4 UNITS (-)
[2017-02-08 08:06] LABS: ALBUMIN 2.6 G/DL (3.5-5.0); CALCIUM, SERUM 9.2 MG/DL (8.5-10.4); CHLORIDE, SERUM 111 MMOL/L (96-112); CO2 (CARBON DIOXIDE) 25 MMOL/L (24-34); CREATININE 1.55 MG/DL (0.70-1.30); GFR AFRICAN AMERICAN 47 ML/MIN (>=60); GFR NON AFRICAN AMERICAN 41 ML/MIN (>=60); GLUCOSE, SERUM 102 MG/DL (60-99); PHOSPHORUS, SERUM 2.1 MG/DL (2.5-4.5); POTASSIUM, SERUM 3.4 MMOL/L (3.5-5.3); SODIUM, SERUM 142 MMOL/L (135-148)
[2017-02-08 08:07] LABS: BUN (BLOOD UREA NITROGEN) 30 MG/DL (6-23)
[2017-02-09 05:04] LABS: BASOPHILS 0.5 %; BASOPHILS ABSOLUTE 0.03 10/3/uL (0.0-0.16); EOSINOPHILS 2.3 %; EOSINOPHILS ABSOLUTE 0.14 10/3/uL (0.0-0.53); HEMATOCRIT 31.1 % (40.0-51.0); HEMOGLOBIN 10.4 g/dL (13.6-17.8); IMMATURE GRANULOCYTES 1.7 %; LYMPHOCYTES 19.7 %; LYMPHOCYTES ABSOLUTE 1.18 10/3/uL (0.67-4.30); MEAN CORPUS HGB CONC 33.4 g/dL (32.0-36.0); MEAN CORPUSCULAR HEMOGLOB 33.9 pg (26.0-34.0); MEAN CORPUSCULAR VOLUME 101.3 fL (80-100); MEAN PLATELET VOLUME 9.6 fL (9.2-13.0); MONOCYTES 9.5 %; MONOCYTES ABSOLUTE 0.57 10/3/uL (0.21-1.20); NEUTROPHILS 66.3 %; NEUTROPHILS ABSOLUTE 3.97 10/3/uL (2.02-8.40); PLATELET COUNT 220 10/3/uL (150-400); RBC DISTRIBUTION WIDTH 17.3 % (12.0-16.0); RED CELL COUNT 3.07 10/6/uL (4.7-6.1)
[2017-02-09 05:08] LABS: MANUAL DIFF NO %
[2017-02-09 05:30] LABS: ALBUMIN 2.6 G/DL (3.5-5.0); BUN (BLOOD UREA NITROGEN) 29 MG/DL (6-23); CALCIUM, SERUM 8.9 MG/DL (8.5-10.4); CHLORIDE, SERUM 112 MMOL/L (96-112); CO2 (CARBON DIOXIDE) 26 MMOL/L (24-34); GFR AFRICAN AMERICAN 58 ML/MIN (>=60); GFR NON AFRICAN AMERICAN 50 ML/MIN (>=60); GLUCOSE, SERUM 105 MG/DL (60-99); PHOSPHORUS, SERUM 2.6 MG/DL (2.5-4.5); POTASSIUM, SERUM 3.6 MMOL/L (3.5-5.3); PROTIME (NOT ORD) 53.4 SEC (12.0-14.5); SGOT(AST) 17 U/L (5-40); SGPT(ALT) 36 U/L (5-65); SODIUM, SERUM 144 MMOL/L (135-148); TOTAL BILIRUBIN 0.5 MG/DL (0-1.2); TOTAL PROTEIN 5.9 G/DL (6.0-8.5)
[2017-02-09 05:31] LABS: ALKALINE PHOSPHATASE 130 U/L (45-117); DIRECT BILIRUBIN < 0.1 MG/DL (0.0-0.4); INDIRECT BILIRUBIN(NOT ORDER) 0.4 MG/DL (0.1-0.9)
[2017-02-10 06:06] LABS: BASOPHILS 0.3 %; BASOPHILS ABSOLUTE 0.02 10/3/uL (0.0-0.16); EOSINOPHILS 1.7 %; EOSINOPHILS ABSOLUTE 0.13 10/3/uL (0.0-0.53); HEMATOCRIT 28.5 % (40.0-51.0); HEMOGLOBIN 9.6 g/dL (13.6-17.8); IMMATURE GRANULOCYTES 1.9 %; IMMATURE GRANULOCYTES ABSOLUTE 0.15 10/3/uL (0.0-0.11); LYMPHOCYTES 20.7 %; LYMPHOCYTES ABSOLUTE 1.63 10/3/uL (0.67-4.30); MEAN CORPUS HGB CONC 33.7 g/dL (32.0-36.0); MEAN CORPUSCULAR HEMOGLOB 33.7 pg (26.0-34.0); MEAN PLATELET VOLUME 9.8 fL (9.2-13.0); MONOCYTES 8.4 %; MONOCYTES ABSOLUTE 0.66 10/3/uL (0.21-1.20); NEUTROPHILS ABSOLUTE 5.28 10/3/uL (2.02-8.40); PLATELET COUNT 211 10/3/uL (150-400); RBC DISTRIBUTION WIDTH 17.4 % (12.0-16.0); RED CELL COUNT 2.85 10/6/uL (4.7-6.1); WHITE BLOOD CELLS 7.9 10/3/uL (4.5-10.5)
[2017-02-10 06:08] LABS: MANUAL DIFF NO %
[2017-02-10 06:17] LABS: INTERNATIONAL NORMAL RATI 5.8 UNITS (-); PROTIME (NOT ORD) 51.5 SEC (12.0-14.5)
[2017-02-10 06:19] LABS: ALBUMIN 2.3 G/DL (3.5-5.0); BUN (BLOOD UREA NITROGEN) 31 MG/DL (6-23); CALCIUM, SERUM 8.9 MG/DL (8.5-10.4); CHLORIDE, SERUM 112 MMOL/L (96-112); CO2 (CARBON DIOXIDE) 23 MMOL/L (24-34); CREATININE 1.42 MG/DL (0.70-1.30); GFR AFRICAN AMERICAN 52 ML/MIN (>=60); GFR NON AFRICAN AMERICAN 45 ML/MIN (>=60); GLUCOSE, SERUM 108 MG/DL (60-99); PHOSPHORUS, SERUM 2.5 MG/DL (2.5-4.5); POTASSIUM, SERUM 4.2 MMOL/L (3.5-5.3); SODIUM, SERUM 140 MMOL/L (135-148)
[2017-02-11 05:45] LABS: BASOPHILS 0.4 %; BASOPHILS ABSOLUTE 0.03 10/3/uL (0.0-0.16); EOSINOPHILS ABSOLUTE 0.08 10/3/uL (0.0-0.53); HEMATOCRIT 28.8 % (40.0-51.0); HEMOGLOBIN 9.6 g/dL (13.6-17.8); IMMATURE GRANULOCYTES 4.8 %; LYMPHOCYTES 19.6 %; LYMPHOCYTES ABSOLUTE 1.63 10/3/uL (0.67-4.30); MEAN CORPUS HGB CONC 33.3 g/dL (32.0-36.0); MEAN CORPUSCULAR HEMOGLOB 33.1 pg (26.0-34.0); MEAN CORPUSCULAR VOLUME 99.3 fL (80-100); MEAN PLATELET VOLUME 9.6 fL (9.2-13.0); MONOCYTES 5.9 %; MONOCYTES ABSOLUTE 0.49 10/3/uL (0.21-1.20); NEUTROPHILS 68.3 %; NEUTROPHILS ABSOLUTE 5.67 10/3/uL (2.02-8.40); PLATELET COUNT 223 10/3/uL (150-400); RBC DISTRIBUTION WIDTH 17.2 % (12.0-16.0); WHITE BLOOD CELLS 8.3 10/3/uL (4.5-10.5)
[2017-02-11 05:46] LABS: MANUAL DIFF NO %
[2017-02-11 05:53] LABS: ALBUMIN 2.5 G/DL (3.5-5.0); BUN (BLOOD UREA NITROGEN) 29 MG/DL (6-23); CALCIUM, SERUM 8.9 MG/DL (8.5-10.4); CHLORIDE, SERUM 110 MMOL/L (96-112); CO2 (CARBON DIOXIDE) 23 MMOL/L (24-34); CREATININE 1.18 MG/DL (0.70-1.30); GFR AFRICAN AMERICAN 65 ML/MIN (>=60); GFR NON AFRICAN AMERICAN 56 ML/MIN (>=60); GLUCOSE, SERUM 104 MG/DL (60-99); PHOSPHORUS, SERUM 2.5 MG/DL (2.5-4.5); POTASSIUM, SERUM 4.5 MMOL/L (3.5-5.3); SODIUM, SERUM 141 MMOL/L (135-148)
[2017-02-11 05:54] LABS: INTERNATIONAL NORMAL RATI 5.6 UNITS (-); PROTIME (NOT ORD) 50.3 SEC (12.0-14.5)
[2017-02-12 04:11] LABS: BASOPHILS 0.4 %; BASOPHILS ABSOLUTE 0.03 10/3/uL (0.0-0.16); EOSINOPHILS 1.1 %; EOSINOPHILS ABSOLUTE 0.09 10/3/uL (0.0-0.53); HEMATOCRIT 28.7 % (40.0-51.0); HEMOGLOBIN 9.8 g/dL (13.6-17.8); IMMATURE GRANULOCYTES ABSOLUTE 0.32 10/3/uL (0.0-0.11); LYMPHOCYTES 19.6 %; LYMPHOCYTES ABSOLUTE 1.57 10/3/uL (0.67-4.30); MEAN CORPUS HGB CONC 34.1 g/dL (32.0-36.0); MEAN CORPUSCULAR HEMOGLOB 33.6 pg (26.0-34.0); MEAN CORPUSCULAR VOLUME 98.3 fL (80-100); MEAN PLATELET VOLUME 9.4 fL (9.2-13.0); MONOCYTES 5.9 %; MONOCYTES ABSOLUTE 0.47 10/3/uL (0.21-1.20); NEUTROPHILS ABSOLUTE 5.53 10/3/uL (2.02-8.40); PLATELET COUNT 228 10/3/uL (150-400); RBC DISTRIBUTION WIDTH 17.1 % (12.0-16.0); RED CELL COUNT 2.92 10/6/uL (4.7-6.1)
[2017-02-12 04:15] LABS: MANUAL DIFF NO %
[2017-02-12 04:19] LABS: INTERNATIONAL NORMAL RATI 4.4 UNITS (-)
[2017-02-12 04:28] LABS: ALBUMIN 2.3 G/DL (3.5-5.0); BUN (BLOOD UREA NITROGEN) 27 MG/DL (6-23); CALCIUM, SERUM 8.8 MG/DL (8.5-10.4); CHLORIDE, SERUM 110 MMOL/L (96-112); CO2 (CARBON DIOXIDE) 21 MMOL/L (24-34); CREATININE 1.15 MG/DL (0.70-1.30); GFR AFRICAN AMERICAN 67 ML/MIN (>=60); GFR NON AFRICAN AMERICAN 58 ML/MIN (>=60); GLUCOSE, SERUM 96 MG/DL (60-99); PHOSPHORUS, SERUM 2.5 MG/DL (2.5-4.5); POTASSIUM, SERUM 4.3 MMOL/L (3.5-5.3); SODIUM, SERUM 138 MMOL/L (135-148)
== END 2017-02-12 17:45 | DRG 394 ==
LOC: ER 09:01 → 4EA 14:49
PROVIDERS: Emergency Medicine; Internal Medicine
DX: K52.1 Toxic gastroenteritis and colitis (principal); N17.9 Acute kidney failure, unspecified; C79.9 Secondary malignant neoplasm of unspecified site; E11.22 Type 2 diabetes mellitus with diabetic chronic kidney disease; I48.0 Paroxysmal atrial fibrillation; K31.84 Gastroparesis; C61 Malignant neoplasm of prostate; E66.01 Morbid (severe) obesity due to excess calories; E11.43 Type 2 diabetes mellitus with diabetic autonomic (poly)neuropathy; Z66 Do not resuscitate; R11.2 Nausea with vomiting, unspecified; T38.7X5A Adverse effect of androgens and anabolic congeners, initial encounter; Y92.009 Unspecified place in unspecified non-institutional (private) residence as the place of occurrence of the external cause; N18.3 Chronic kidney disease, stage 3 (moderate); I25.10 Atherosclerotic heart disease of native coronary artery without angina pectoris; Z95.1 Presence of aortocoronary bypass graft; Z79.818 Long term (current) use of other agents affecting estrogen receptors and estrogen levels; Z86.010 Personal history of colon polyps; I12.9 Hypertensive chronic kidney disease with stage 1 through stage 4 chronic kidney disease, or unspecified chronic kidney disease; Z79.01 Long term (current) use of anticoagulants; Z79.52 Long term (current) use of systemic steroids; Z79.82 Long term (current) use of aspirin; R53.81 Other malaise; R53.1 Weakness; K21.9 Gastro-esophageal reflux disease without esophagitis; Z86.73 Personal history of transient ischemic attack (TIA), and cerebral infarction without residual deficits; D63.0 Anemia in neoplastic disease; E66.9 Obesity, unspecified; Z68.30 Body mass index [BMI] 30.0-30.9, adult
CPT/HCPCS: 36600; 71010; 71250; 74176; 80053; 80069; 80076; 81001; 82805; 83605; 83735; 83880; 84100; 84132; 84145; 84153; 84484; 85025; 85610; 85730; 87040; 87045; 87046; 87046-59; 87328; 87329; 87493; 87493-59; 87899; 87899-59; 89055; 93306; 94640; 96365; 97110-GP; 97116-GP; 97161-GP; 99285; A9270-GY; G8978-CK-GP; G8979-CJ-GP; J1956

== ENCOUNTER 2017-04-26 11:37 | Emergency (ER) | payer MEDICARE, OTHER ==
[~2017-04-26 11:37] MED LIST changes: +BYDUREON2 MG SQ; +LUPRON DEPOT IM; +P5 PO; +PROAIR HFA INH; +PROBIOTIC PO; +PROSCAR5 PO; +T PO; +VITAMIN B-121000 MC1 SL; +ZYTIGA250 MG PO
[2017-04-26 14:19] LABS: BASOPHILS 0.4 %; BASOPHILS ABSOLUTE 0.03 10/3/uL (0.0-0.16); EOSINOPHILS ABSOLUTE 0.08 10/3/uL (0.0-0.53); ER CBC TAT 0 Hrs 00 Mins; HEMATOCRIT 29.7 % (40.0-51.0); HEMOGLOBIN 9.4 g/dL (13.6-17.8); IMMATURE GRANULOCYTES 0.8 %; IMMATURE GRANULOCYTES ABSOLUTE 0.06 10/3/uL (0.0-0.11); LYMPHOCYTES 17.8 %; LYMPHOCYTES ABSOLUTE 1.38 10/3/uL (0.67-4.30); MEAN CORPUSCULAR HEMOGLOB 31.5 pg (26.0-34.0); MEAN CORPUSCULAR VOLUME 99.7 fL (80-100); MEAN PLATELET VOLUME 9.7 fL (9.2-13.0); MONOCYTES 8.5 %; MONOCYTES ABSOLUTE 0.66 10/3/uL (0.21-1.20); NEUTROPHILS 71.5 %; NEUTROPHILS ABSOLUTE 5.54 10/3/uL (2.02-8.40); PLATELET COUNT 280 10/3/uL (150-400); RBC DISTRIBUTION WIDTH 13.8 % (12.0-16.0); RED CELL COUNT 2.98 10/6/uL (4.7-6.1); WHITE BLOOD CELLS 7.8 10/3/uL (4.5-10.5)
[2017-04-26 14:23] LABS: MANUAL DIFF NO %; MEAN CORPUS HGB CONC 31.6 g/dL (32.0-36.0)
[2017-04-26 14:27] LABS: INTERNATIONAL NORMAL RATI 3.2 UNITS (-); PARTIAL THROMBO TIME 27.3 SEC (22.5-37.2)
[2017-04-26 14:28] LABS: PROTIME (NOT ORD) 32.8 SEC (12.0-14.5)
[2017-04-26 14:36] LABS: ASCORBIC ACID (UR NOT ORDER) NEG (NEG); BILIRUBIN, URINE NEGATIVE (NEG); ER URINALYSIS TAT 0 Hrs 22 Mins; KETONE, URINE NEGATIVE (NEG); LEUKOCYTE ESTERASE(NOT OR NEG (NEG); NITRITE (URINE) NEG (NEG); WBC (NOT ORDERED) (RFLEX) 1 (0-5)
[2017-04-26 14:38] LABS: CALCIUM, SERUM 9.1 MG/DL (8.5-10.4); CREATININE 1.11 MG/DL (0.70-1.30); GFR AFRICAN AMERICAN 70 ML/MIN (>=60); GFR NON AFRICAN AMERICAN 61 ML/MIN (>=60); GLUCOSE, SERUM 89 MG/DL (60-99); POTASSIUM, SERUM 4.1 MMOL/L (3.5-5.3); SGPT(ALT) 26 U/L (5-65); SODIUM, SERUM 135 MMOL/L (135-148); TOTAL BILIRUBIN 0.4 MG/DL (0-1.2); TOTAL PROTEIN 6.7 G/DL (6.0-8.5); TROPONIN I <0.02 NG/ML (<0.05)
[2017-04-26 14:39] LABS: A/G RATIO 0.7 (0.7-1.9); ALBUMIN 2.8 G/DL (3.5-5.0); ALKALINE PHOSPHATASE 115 U/L (45-117); BUN (BLOOD UREA NITROGEN) 16 MG/DL (6-23); CHLORIDE, SERUM 95 MMOL/L (96-112); CO2 (CARBON DIOXIDE) 34 MMOL/L (24-34); GLOBULIN 3.9 G/DL (2.5-4.1); SGOT(AST) 62 U/L (5-40)
[2017-04-26 16:06] LABS: LACTATE 0.9 MMOL/L (0.3-2.4)
== END 2017-04-26 21:41 | disposition home or self-care (01) ==
LOC: ER 11:37
PROVIDERS: Emergency Medicine
DX: J18.9 Pneumonia, unspecified organism (principal); C61 Malignant neoplasm of prostate; R62.7 Adult failure to thrive; N30.90 Cystitis, unspecified without hematuria; I48.91 Unspecified atrial fibrillation; N18.9 Chronic kidney disease, unspecified; E11.9 Type 2 diabetes mellitus without complications; Z79.01 Long term (current) use of anticoagulants; Z79.52 Long term (current) use of systemic steroids; Z79.899 Other long term (current) drug therapy; Z79.82 Long term (current) use of aspirin
CPT/HCPCS: 71010; 80053; 81001; 83605; 83880; 84145; 84484; 85025; 85610; 85730; 87040; 93005; 96365; 96366; 96375; 99285; J0456; J2930

== ENCOUNTER 2017-05-03 02:00 | Emergency (ER) | payer MEDICARE, OTHER ==
[2017-05-03 03:24] LABS: BASOPHILS 0.3 %; BASOPHILS ABSOLUTE 0.03 10/3/uL (0.0-0.16); EOSINOPHILS 1.1 %; EOSINOPHILS ABSOLUTE 0.11 10/3/uL (0.0-0.53); HEMOGLOBIN 8.5 g/dL (13.6-17.8); IMMATURE GRANULOCYTES 4.9 %; IMMATURE GRANULOCYTES ABSOLUTE 0.48 10/3/uL (0.0-0.11); LYMPHOCYTES 19.4 %; LYMPHOCYTES ABSOLUTE 1.89 10/3/uL (0.67-4.30); MEAN CORPUS HGB CONC 32.4 g/dL (32.0-36.0); MEAN CORPUSCULAR HEMOGLOB 32.2 pg (26.0-34.0); MEAN CORPUSCULAR VOLUME 99.2 fL (80-100); MONOCYTES 7.8 %; MONOCYTES ABSOLUTE 0.76 10/3/uL (0.21-1.20); NEUTROPHILS 66.5 %; NEUTROPHILS ABSOLUTE 6.46 10/3/uL (2.02-8.40); PLATELET COUNT 344 10/3/uL (150-400); RBC DISTRIBUTION WIDTH 14.2 % (12.0-16.0); RED CELL COUNT 2.64 10/6/uL (4.7-6.1); WHITE BLOOD CELLS 9.7 10/3/uL (4.5-10.5)
[2017-05-03 03:26] LABS: HEMATOCRIT 26.2 % (40.0-51.0)
[2017-05-03 03:27] LABS: MANUAL DIFF NO %
[2017-05-03 03:44] LABS: CALCIUM, SERUM 8.5 MG/DL (8.5-10.4); CHEST PAIN PROFILE TAT 0 Hrs 26 Mins; CHLORIDE, SERUM 99 MMOL/L (96-112); CO2 (CARBON DIOXIDE) 32 MMOL/L (24-34); CREATININE 1.43 MG/DL (0.70-1.30); GFR AFRICAN AMERICAN 52 ML/MIN (>=60); GFR NON AFRICAN AMERICAN 45 ML/MIN (>=60); POTASSIUM, SERUM 3.5 MMOL/L (3.5-5.3); SODIUM, SERUM 137 MMOL/L (135-148); TROPONIN I <0.02 NG/ML (<0.05)
[2017-05-03 03:49] LABS: PARTIAL THROMBO TIME 35.4 SEC (22.5-37.2)
[2017-05-03 03:50] LABS: INTERNATIONAL NORMAL RATI 3.5 UNITS (-)
[2017-05-03 03:51] LABS: BUN (BLOOD UREA NITROGEN) 30 MG/DL (6-23); GLUCOSE, SERUM 126 MG/DL (60-99)
[2017-05-03 04:31] LABS: LACTATE 1.5 MMOL/L (0.3-2.4)
[2017-05-03 05:33] LABS: ASCORBIC ACID (UR NOT ORDER) 40 (NEG); BILIRUBIN, URINE NEGATIVE (NEG); ER URINALYSIS TAT 0 Hrs 00 Mins; KETONE, URINE NEGATIVE (NEG); LEUKOCYTE ESTERASE(NOT OR NEG (NEG); NITRITE (URINE) NEG (NEG); WBC (NOT ORDERED) (RFLEX) 0 (0-5)
== END 2017-05-03 08:03 | disposition home or self-care (01) ==
LOC: ER 02:00
PROVIDERS: Nurse Practitioner
DX: I13.0 Hypertensive heart and chronic kidney disease with heart failure and stage 1 through stage 4 chronic kidney disease, or unspecified chronic kidney disease (principal); I50.9 Heart failure, unspecified; N18.9 Chronic kidney disease, unspecified; R06.00 Dyspnea, unspecified; C61 Malignant neoplasm of prostate; C79.9 Secondary malignant neoplasm of unspecified site; R31.9 Hematuria, unspecified; D64.9 Anemia, unspecified; K21.9 Gastro-esophageal reflux disease without esophagitis; E11.9 Type 2 diabetes mellitus without complications; Z79.52 Long term (current) use of systemic steroids; Z79.01 Long term (current) use of anticoagulants; Z79.82 Long term (current) use of aspirin; Z79.899 Other long term (current) drug therapy
CPT/HCPCS: 71010; 80048; 81001; 83605; 83735; 83880; 84145; 84484; 85025; 85610; 85730; 93005; 94640; 99285